=== PATIENT | male | born 1970 | race Caucasian/White ===

== ENCOUNTER 2021-03-07 07:29 | Emergency (ER) | payer OTHER ==
[~2021-03-07 07:29] MED LIST changes: -BACTRIM DS TAB1 EACH PO; -CEPHALEXIN500 MG PO; -LODINE CAP 300300 MG PO
== END 2021-03-07 08:28 | disposition home or self-care (01) ==
LOC: ER1 07:29
DX: Z48.817 Encounter for surgical aftercare following surgery on the skin and subcutaneous tissue (principal); I10 Essential (primary) hypertension; F17.200 Nicotine dependence, unspecified, uncomplicated
CPT/HCPCS: 99282

== ENCOUNTER → 2021-03-07 | Outpatient (CLI) | payer OTHER ==
[~2021-03-07] MED LIST: BACTRIM DS TAB1 EACH PO; CARAFATE1 GM/10 ML PO; CEPHALEXIN500 MG PO; LODINE CAP 300300 MG PO; VIBRAMYCIN100 MG PO; ZOFRAN ODT 4 MG4 MG PO
== END ==
LOC: RAD 08:31
DX: M25.551 Pain in right hip (principal); I10 Essential (primary) hypertension
CPT/HCPCS: 73502

== ENCOUNTER → 2021-03-15 | Outpatient (CLI) | payer OTHER ==
[~2021-03-15] MED LIST changes: +BACTRIM DS TAB1 EACH PO; +CEPHALEXIN500 MG PO; +LODINE CAP 300300 MG PO
== END ==
LOC: EROP 10:05
DX: L72.3 Sebaceous cyst (principal); L08.89 Other specified local infections of the skin and subcutaneous tissue; M25.551 Pain in right hip
CPT/HCPCS: G0463

== ENCOUNTER 2021-03-27 00:45 | Emergency (ER) | payer OTHER ==
[~2021-03-27 00:45] MED LIST changes: -BACTRIM DS TAB1 EACH PO; -CEPHALEXIN500 MG PO; -LODINE CAP 300300 MG PO
[2021-03-27] MEDS ORDERED: BACTRIM DS TAB1 EACH PO (01:19)
[2021-03-27] MEDS ORDERED: CEPHALEXIN500 MG PO (01:19)
[2021-03-27] MEDS ORDERED: LODINE CAP 300300 MG PO (01:19)
== END 2021-03-27 01:25 | disposition home or self-care (01) ==
LOC: ER1 00:45
DX: L03.116 Cellulitis of left lower limb (principal); I10 Essential (primary) hypertension; E03.9 Hypothyroidism, unspecified; F17.210 Nicotine dependence, cigarettes, uncomplicated
CPT/HCPCS: 99283

== ENCOUNTER 2022-02-03 20:00 | Emergency (ER) | payer OTHER ==
[~2022-02-03 20:00] MED LIST changes: +BACTRIM DS TAB1 EACH PO; +CEPHALEXIN500 MG PO; +LODINE CAP 300300 MG PO
[2022-02-03 20:36] LABS: HEMOGLOBIN 13.4 gm/dl (14.0-17.5); RED BLOOD COUNT 4.39 M/UL (4.20-5.50); WHITE BLOOD COUNT 7.1 K/UL (4.5-11.0)
[2022-02-03 20:59] LABS: BUN/CREATININE RATIO 11 (0-10)
== END 2022-02-04 00:10 | disposition home or self-care (01) ==
LOC: ER1 20:00
PROVIDERS: Family Medicine
DX: R07.89 Other chest pain (principal); E78.5 Hyperlipidemia, unspecified; I10 Essential (primary) hypertension; F17.210 Nicotine dependence, cigarettes, uncomplicated
CPT/HCPCS: 71045; 80053; 82550; 82553; 83880; 84484; 85025; 85379; 85610; 85730; 93005; 99285; Q9967